=== PATIENT | female | born 1950 | race Caucasian/White ===

== ENCOUNTER 2018-04-18 09:34 | Day surgery (SDC) | payer MEDICARE, BC ==
[~2018-04-18] VITALS: Ht 157.5 cm; Wt 55.3 kg
[~2018-04-18 09:34] MED LIST: (None)200 MCG PO; Aspir 8181 MG PO; B Complex #11 EACH PO; Excedrin Extra1 EACH PO; FAMO40 PO; FLONASE ALLERG9.9 ML; GRAPESEED OIL4000 ML PO; IBUP800 PO; Lecithin-191200 MG PO; OXYTROL FOR WO1 EACH TD; Prozac20 MG PO; TRAZ50 PO; VITAMIN C500 MG PO; Xanax0.5 MG PO
== END 2018-04-18 11:38 | disposition home or self-care (01) ==
LOC: ORSCSDS 09:34
PROVIDERS: Internal Medicine Gastroenterology
PROC: 0DBE8ZX Excision of Large Intestine, Via Natural or Artificial Opening Endoscopic, Diagnostic (ICD-10-PCS; principal; 2018-04-18 11:00)
PROC: 0DBH8ZX Excision of Cecum, Via Natural or Artificial Opening Endoscopic, Diagnostic (ICD-10-PCS; principal; 2018-04-18 11:00)
DX: R19.7 Diarrhea, unspecified (principal); Z80.0 Family history of malignant neoplasm of digestive organs; D12.0 Benign neoplasm of cecum; K57.30 Diverticulosis of large intestine without perforation or abscess without bleeding; K64.8 Other hemorrhoids; Z79.899 Other long term (current) drug therapy; Z79.82 Long term (current) use of aspirin
CPT/HCPCS: 88305; J7120

== ENCOUNTER 2018-08-22 09:01 | Emergency (ER) | payer MEDICARE, BC ==
[~2018-08-22] VITALS: Ht 157.5 cm; Wt 54.4 kg
[2018-08-22 09:45] LABS: BASOPHILS ABSOLUTE AUTO 0.05 K/mm3 (0.00-0.23); BASOPHILS PERCENT AUTO 1 % (0-2); EOSINOPHILS ABSOLUTE AUTO 1.76 K/mm3 (0.00-0.68); EOSINOPHILS PERCENT AUTO 27 % (0-6); Hematocrit 44.5 % (33.0-51.0); IMMATURE GRAN ABSOLUTE AUTO 0.02 K/mm3 (0.00-0.10); IMMATURE GRAN PERCENT AUTO 0 % (0-1); LYMPHOCYTES ABSOLUTE AUTO 1.62 K/mm3 (0.84-5.20); LYMPHOCYTES PERCENT AUTO 24 % (21-46); MONOCYTES ABSOLUTE AUTO 0.54 K/mm3 (0.16-1.47); MONOCYTES PERCENT AUTO 8 % (4-13); Mean Corpuscular HGB 33.6 pg (26.0-34.0); Mean Corpuscular HGB Conc 33.7 g/dL (31.5-36.5); Mean Corpuscular Volume 100 fL (80-100); Mean Platelet Volume 10.4 fL (9.1-12.4); NEUTROPHILS ABSOLUTE AUTO 2.66 K/mm3 (1.96-9.15); NEUTROPHILS PERCENT AUTO 40 % (41-73); Platelet Count 249 K/mm3 (150-400); RDW Coefficient Variation 13.2 % (11.7-14.2); RDW Standard Deviation 48.7 fL (35.1-46.3); Red Blood Cell Count 4.47 M/mm3 (3.80-5.20); White Blood Cell Count 6.65 K/mm3 (4.00-11.30)
[2018-08-22 10:06] LABS: Alanine Aminotransfer (ALT/SGP 227 U/L (12-78); Albumin, Blood 3.9 g/dL (3.4-5.0); Albumin/Globulin Ratio 1.2 (0.8-1.8); Alk Phos 284 U/L (50-136); Anion Gap 5 mmol/L (6-16); Aspartate Aminotrans (AST/SGOT 108 U/L (12-37); Bilirubin, Total 0.6 mg/dL (0.1-1.0); Blood Urea Nitrogen 8 mg/dL (8-24); Bun/Creatinine Ratio 13.5 (12.0-20.0); CO2, Blood 28 mmol/L (21-32); Calcium, Blood 9.4 mg/dL (8.5-10.1); Chloride, Blood 110 mmol/L (98-108); Creatinine, Blood 0.59 mg/dL (0.40-1.00); Globulin, Blood 3.3 g/dL (2.2-4.0); Glomerular Filtration Rate >60 (60-); Glucose, Blood 89 mg/dL (70-99); Potassium, Blood 3.8 mmol/L (3.5-5.5); Sodium, Blood 143 mmol/L (136-145); Total Protein, Blood 7.2 g/dL (6.4-8.2)
[2018-08-22 11:28] LABS: Adenovirus F 40/41 Not Detected (NOT DETECT); Astrovirus Not Detected (NOT DETECT); Campylobacter Sp Not Detected (NOT DETECT); Cryptosporidium Not Detected (NOT DETECT); Cyclospora Cayetanensis Not Detected (NOT DETECT); E. Coli O157 Not Detected (NOT DETECT); Entamoeba Histolytica Not Detected (NOT DETECT); Enteroaggregative E. coli-EAEC Not Detected (NOT DETECT); Enteropathogenic E. coli-EPEC Not Detected (NOT DETECT); Enterotoxigenic E. coli-ETEC Not Detected (NOT DETECT); Giardia Lamblia Not Detected (NOT DETECT); Norovirus GI/GII Not Detected (NOT DETECT); Plesiomonas Shigelloides Not Detected (NOT DETECT); Rotavirus A Not Detected (NOT DETECT); Salmonella Sp Not Detected (NOT DETECT); Sapovirus Not Detected (NOT DETECT); Shiga Toxin-prod E. coli-STEC Not Detected (NOT DETECT); Shigella/Enteroin E. coli-EIEC Not Detected (NOT DETECT); Vibrio Cholerae Not Detected (NOT DETECT); Vibrio Sp Not Detected (NOT DETECT); Yersinia Enterocolitica Not Detected (NOT DETECT)
[2018-08-23 01:07] LABS: HBSAG SCREEN Negative (Negative); HEP A AB, IGM Negative (Negative); HEP B CORE AB, IGM Negative (Negative); HEP C VIRUS AB <0.1 (0.0-0.9)
== END 2018-08-22 11:24 | disposition home or self-care (01) ==
LOC: ER 09:01
PROVIDERS: Emergency Medicine
DX: A04.72 Enterocolitis due to Clostridium difficile, not specified as recurrent (principal); R79.89 Other specified abnormal findings of blood chemistry; M54.5 Low back pain; Z88.5 Allergy status to narcotic agent
CPT/HCPCS: 36415; 80053; 80074; 83735; 85025; 87324; 87507; 96360; 99284-25; J7030

== ENCOUNTER 2018-08-31 18:29 | Emergency (ER) | payer MEDICARE, BC ==
[~2018-08-31] VITALS: Ht 157.5 cm; Wt 54.4 kg
[2018-08-31] MEDS ORDERED: FLUO10 PO (18:54)
[2018-08-31] MEDS ORDERED: ALPR.5 PO (18:54)
[2018-08-31] MEDS ORDERED: Vancocin HCl125 MG PO (18:54)
[2018-08-31 19:59] LABS: BASOPHILS ABSOLUTE AUTO 0.05 K/mm3 (0.00-0.23); BASOPHILS PERCENT AUTO 1 % (0-2); EOSINOPHILS ABSOLUTE AUTO 2.03 K/mm3 (0.00-0.68); EOSINOPHILS PERCENT AUTO 22 % (0-6); Hematocrit 40.4 % (33.0-51.0); Hemoglobin 13.3 g/dL (11.5-16.0); IMMATURE GRAN ABSOLUTE AUTO 0.03 K/mm3 (0.00-0.10); IMMATURE GRAN PERCENT AUTO 0 % (0-1); LYMPHOCYTES ABSOLUTE AUTO 1.64 K/mm3 (0.84-5.20); LYMPHOCYTES PERCENT AUTO 18 % (21-46); MONOCYTES ABSOLUTE AUTO 0.87 K/mm3 (0.16-1.47); MONOCYTES PERCENT AUTO 10 % (4-13); Mean Corpuscular HGB 33.3 pg (26.0-34.0); Mean Corpuscular HGB Conc 32.9 g/dL (31.5-36.5); Mean Corpuscular Volume 101 fL (80-100); Mean Platelet Volume 10.8 fL (9.1-12.4); NEUTROPHILS ABSOLUTE AUTO 4.44 K/mm3 (1.96-9.15); NEUTROPHILS PERCENT AUTO 49 % (41-73); Platelet Count 220 K/mm3 (150-400); RDW Coefficient Variation 13.4 % (11.7-14.2); RDW Standard Deviation 50.1 fL (35.1-46.3); White Blood Cell Count 9.06 K/mm3 (4.00-11.30)
[2018-08-31 20:25] LABS: Alanine Aminotransfer (ALT/SGP 45 U/L (12-78); Albumin, Blood 3.6 g/dL (3.4-5.0); Albumin/Globulin Ratio 1.2 (0.8-1.8); Alk Phos 125 U/L (50-136); Anion Gap 6 mmol/L (6-16); Aspartate Aminotrans (AST/SGOT 22 U/L (12-37); Bilirubin, Total 0.3 mg/dL (0.1-1.0); Blood Urea Nitrogen 23 mg/dL (8-24); Bun/Creatinine Ratio 35.8 (12.0-20.0); CO2, Blood 29 mmol/L (21-32); Calcium, Blood 8.8 mg/dL (8.5-10.1); Chloride, Blood 105 mmol/L (98-108); Creatinine, Blood 0.64 mg/dL (0.40-1.00); Globulin, Blood 2.9 g/dL (2.2-4.0); Glomerular Filtration Rate >60 (60-); Glucose, Blood 98 mg/dL (70-99); Potassium, Blood 3.9 mmol/L (3.5-5.5); Sodium, Blood 140 mmol/L (136-145); Total Protein, Blood 6.5 g/dL (6.4-8.2)
[2018-08-31 20:26] LABS: Troponin I <0.015 ng/mL (0.000-0.040)
[2018-08-31] MEDS ORDERED: Omeprazole20 M1 PO (20:42)
== END 2018-08-31 20:56 | disposition home or self-care (01) ==
LOC: ER 18:29
PROVIDERS: Physician Assistant
DX: K20.9 Esophagitis, unspecified (principal); Z79.899 Other long term (current) drug therapy
CPT/HCPCS: 71046; 80053; 84484; 85025; 93005; 93010; 99284-25

== ENCOUNTER 2021-12-24 15:10 | Emergency (ER) | payer MEDICARE, BC ==
[~2021-12-24] VITALS: Ht 157.5 cm; Wt 65.8 kg
[~2021-12-24 15:10] MED LIST changes: +ALPR.5 PO; +FLUO10 PO; +Omeprazole20 M1 PO; +Vancocin HCl125 MG PO
[2021-12-24] MEDS ORDERED: XARELTO15 MG PO (16:38)
== END 2021-12-24 16:44 | disposition home or self-care (01) ==
LOC: ER 15:10
DX: I82.452 Acute embolism and thrombosis of left peroneal vein (principal)
CPT/HCPCS: 93971; 99283-25; A9270

== ENCOUNTER 2023-04-15 15:08 | Emergency (ER) | payer MEDICARE, BC ==
[~2023-04-15] VITALS: Ht 157.5 cm; Wt 63.5 kg
[~2023-04-15 15:08] MED LIST changes: +XARELTO15 MG PO
[2023-04-15 15:11] VITALS: BP 128/93
== END 2023-04-15 17:43 | disposition home or self-care (01) ==
LOC: ER 15:08
DX: R60.0 Localized edema (principal); Z88.1 Allergy status to other antibiotic agents; Z88.5 Allergy status to narcotic agent; Z79.899 Other long term (current) drug therapy; Z79.01 Long term (current) use of anticoagulants; Z86.718 Personal history of other venous thrombosis and embolism
CPT/HCPCS: 93971; 99283-25

== ENCOUNTER 2024-02-27 13:14 | Emergency (ER) | payer MEDICARE, BC ==
[~2024-02-27] VITALS: Ht 152.4 cm; Wt 67.1 kg
[~2024-02-27 13:14] MED LIST changes: +BUPR150ER PO; +ESCI20 PO
[2024-02-27 16:23] VITALS: BP 130/82
== END 2024-02-27 19:44 | disposition home or self-care (01) ==
LOC: ER 13:14
DX: M25.561 Pain in right knee (principal); Z88.1 Allergy status to other antibiotic agents; Z88.5 Allergy status to narcotic agent; Z79.899 Other long term (current) drug therapy; M79.604 Pain in right leg
CPT/HCPCS: 93971; 99283-25

== ENCOUNTER → 2024-04-18 | Outpatient (CLI) | payer MEDICARE, BC ==
[2024-04-24 12:02] LABS: CALPROTECTIN,FECAL 75 ug/g (<=49)
== END | disposition home or self-care (01) ==
LOC: LAB SHORT 10:59 → LAB 10:59
PROVIDERS: Internal Medicine
DX: K52.9 Noninfective gastroenteritis and colitis, unspecified (principal)
CPT/HCPCS: 83993

== ENCOUNTER → 2024-06-17 | Outpatient (CLI) | payer MEDICARE, BC ==
[2024-06-20 12:54] LABS: CALPROTECTIN,FECAL 55 ug/g (<=49)
== END ==
LOC: LAB SHORT 09:00 → LAB 09:00
PROVIDERS: Internal Medicine
DX: R19.5 Other fecal abnormalities (principal)
CPT/HCPCS: 83993

== ENCOUNTER → 2024-09-08 | Outpatient (CLI) | payer MEDICARE, BC | LOC: LAB SHORT 09:50 → LAB 09:50 | DX: M25.472 Effusion, left ankle (principal) | CPT/HCPCS: 85379 ==

== ENCOUNTER 2024-09-11 07:37 | Emergency (ER) | payer MEDICARE, BC ==
[~2024-09-11] VITALS: Ht 152.4 cm; Wt 65.8 kg
[2024-09-11 07:59] VITALS: BP 120/102
== END 2024-09-11 09:47 | disposition home or self-care (01) ==
LOC: ER 07:37
DX: Z48.01 Encounter for change or removal of surgical wound dressing (principal); Z90.49 Acquired absence of other specified parts of digestive tract; Z88.5 Allergy status to narcotic agent; Z88.8 Allergy status to other drugs, medicaments and biological substances; Z79.899 Other long term (current) drug therapy
CPT/HCPCS: 99282